=== PATIENT | female | born 1970 | race African-American/Black ===

== ENCOUNTER 2021-01-14 08:08 | Emergency (ER) | payer OTHER, SELFPAY ==
--- NOTE | ~2021-01-14 | XR_ITS ---
EXAMINATION: XR lumbar spine min 4V DATE: 01/14/2021 09:15 INDICATION: Low back pain radiating down the right leg. TECHNIQUE: 5 views of lumbar spine were obtained. COMPARISON: None. FINDINGS: There is 3 degrees dextrocurvature of lumbar spine. Vertebral body heights are normal. Ther e is mildly decreased disc height at L4-L5. There are endplate osteophytes at multiple levels. There is mild facet joint osteoarthritis on the right at L4-L5 and on the left at L5-S1. IMPRESSION: 1. Mild lumbar spondylosis. Reviewed, dictated and finalized at location B. IMPRESSION: 1. Mild lumbar spondylosis.
[2021-01-14 08:20] VITALS: BP 141/98; PULSE 91; RESP 16; TEMP 36.6; O2SAT 100
--- NOTE | 2021-01-14 08:57 | ED.BACK ---
HPI - Back Pain/Injury General Chief Complaint: Urogenital-Female Stated Complaint: lower back pain Time Seen by Provider: 01/14/21 08:10 Source: patient Mode of arrival: ambulatory Limitations: no limitations History of Present Illness HPI Narrative: 50-year-old female presents to [facility] with complaints of low back pain for the past 3 days. Patient reports that the pain does radiate to her right upper leg at times. Patient denies numbness, tingling, bowel or bladder problems. Patient has been taking [id number] Tylenol with minimal relief. Patient reports that she has had similar pain in the past. MD elicited complaint: back pain Pertinent past history: prior back pain Onset (ago): day(s) (3) Location: lumbar spine Radiation: right upper leg Relieving factors: none Associated symptoms: denies other symptoms Related Data Home Medications Medication Instructions Recorded Confirmed amlodipine 10 mg PO DAILY 01/14/21 01/14/21 cyproheptadine 4 mg PO BID 01/14/21 01/14/21 escitalopram oxalate mg 01/14/21 losartan 50 mg PO DAILY 01/14/21 01/14/21 Allergies Allergy/AdvReac Type Severity Reaction Status Date / Time Sulfa (Sulfonamide Allergy Hives Verified 01/14/21 08:46 Antibiotics) Review of Systems Constitutional: Constitutional: Denies chills, Denies fever(s) and Denies weakness Cardiovascular: Cardiovascular: Denies chest pain, Denies rapid heart rate, Denies radiating jaw, neck or arm pain and Denies slow heart rate Respiratory: Respiratory: Denies cough and Denies dyspnea Gastrointestinal: Gastrointestinal: Denies abdominal pain, Denies nausea and Denies vomiting Musculoskeletal: Musculoskeletal: Reports back pain, Denies joint swelling and Denies muscle cramps Integumentary/Breasts: Skin/Breast: Denies rash PMFSH Past Medical History Medical History (Updated 01/14/21 @ 09:26 by Kusum Abebe APRN) Post hysterectomy menopause Social History Social History (Updated 01/14/21 @ 08:59 by Kusum Abebe APRN) Tobacco type: e-cigarettes/vaping Comments At time of signature, I agree with nursing past medical, surgical, social and family history. There is no relevant family history pertinent to the presenting complaint. Exam Const: General: healthy appearing and no acute distress Orientation/consciousness: patient oriented x3 Neck: Neck: normal visual inspection Resp: Effort & Inspection: normal respiratory effort, not labored and not tachypneic Auscultation: clear to auscultation bilaterally Cardio: Rate: regular rate, not bradycardic and not tachycardic Rhythm: regular rhythm Back/Spine/Pelvis: Back: no CVA tenderness Other: Mild pain noted to lower lumbar upon palpation. Full range of motion noted to back. There is no swelling, erythema, bruising or open wounds noted. Gait is steady. Skin: General skin exam: normal color Rashes: no rashes Neuro: General: patient oriented x3, moves all extremities, no meningeal signs and no focal motor deficits Speech: normal speech Extrem: General: normal to inspection Psych: Appearance: grossly normal Mental Status: mental status grossly normal Affect: normal affect Attitude: cooperative Thought content: Yes Normal thought content present Course Course Emergency Course: Patient agrees to follow-up with primary care provider to discuss x-ray results and possibility of additional imaging. Patient agrees to take medications as prescribed. Patient agrees to monitor symptoms closely agrees to proceed to the emergency room if symptoms worsen Vital Signs Vital signs: Vital Signs Temperature 36.6 C 01/14/21 08:20 Pulse Rate 91 01/14/21 08:20 Respiratory Rate 16 01/14/21 08:20 Blood Pressure 141/98 H 01/14/21 08:20 Pulse Oximetry 100 01/14/21 08:20 Temperature 36.6 C 01/14/21 08:20 Pulse Rate 91 01/14/21 08:20 Respiratory Rate 16 01/14/21 08:20 Blood Pressure 141/98 H 01/14/21 08:20 Pulse Oximetry
--- NOTE | 2021-01-14 09:15 | PC.NURSE ---
NO URINE CULTURE PER PRIOVIDER.
[2021-01-14] MEDS: KETOROLAC (*BKC) 60 MG/2 ML VIAL 30 MG IM (09:32)
== END 2021-01-14 10:08 | disposition home or self-care (01) ==
PROVIDERS: Emergency Provider Nurse Practitioner Family; PCP Nurse Practitioner Family
DX: M54.41 Lumbago with sciatica, right side (principal); F17.200 Nicotine dependence, unspecified, uncomplicated; I10 Essential (primary) hypertension
CPT/HCPCS: 72110; 81003; 96372; 99213; G0463; J1885

== ENCOUNTER 2021-05-17 10:53 | Emergency (ER) | payer OTHER, SELFPAY ==
[2021-05-17 11:00] VITALS: BP 114/84; PULSE 86; RESP 16; TEMP 36.1; O2SAT 100
[2021-05-17 11:09] VITALS: BP 114/84; PULSE 86; RESP 16; TEMP 36.1; O2SAT 100
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
== END 2021-05-17 11:37 | disposition home or self-care (01) ==
PROVIDERS: Emergency Provider Nurse Practitioner; PCP Nurse Practitioner Family
DX: T23.132A Burn of first degree of multiple left fingers (nail), not including thumb, initial encounter (principal); X08.8XXA Exposure to other specified smoke, fire and flames, initial encounter; E78.00 Pure hypercholesterolemia, unspecified; I10 Essential (primary) hypertension
CPT/HCPCS: 16000; 99213; A9270; G0463

== ENCOUNTER 2021-05-20 10:49 | Emergency (ER) | payer OTHER, SELFPAY ==
[2021-05-20 10:54] VITALS: BP 119/84; PULSE 102; RESP 20; TEMP 36.9; O2SAT 100
--- NOTE | 2021-05-20 11:50 | ED.GENADULT ---
HPI - General Adult General Chief complaint: Abdominal Pain Stated complaint: Abdominal Cramping/Diarrhea Time Seen by Provider: 05/20/21 11:42 Source: patient and RN notes reviewed Mode of arrival: ambulatory Limitations: no limitations History of Present Illness HPI narrative: Patient presents today complaining of abdominal cramping, 4 episodes of loose stool, nausea, and mild headache. Symptoms began at 430 this morning. Denies vomiting or fever. Reports headache is, not bad enough to take anything for. Denies any recent travel or suspicious food intake. Patient works at a [employer]. States some children have been out recently sick with viruses. . She has taken no [id number] treatment prior to arrival. Denies any blood or mucus in the stool. She has been vaccinated against COVID-19. She has not had a flu shot. MD complaint: Abdominal cramping, loose stool, nausea Related Data Home Medications Medication Instructions Recorded Confirmed amlodipine 10 mg PO DAILY 01/14/21 05/20/21 cyproheptadine 4 mg PO BID 01/14/21 05/20/21 losartan 50 mg PO DAILY 01/14/21 05/20/21 atorvastatin 20 mg PO DAILY 05/17/21 05/20/21 Allergies Allergy/AdvReac Type Severity Reaction Status Date / Time Sulfa (Sulfonamide Allergy Intermediate Hives Verified 05/20/21 10:52 Antibiotics) Review of Systems Review of Systems: CONSTITUTIONAL: Denies body aches, fever, chills, or sweats. EYES: Denies visual changes, redness, or discharge. ENT: Denies rhinorrhea, congestion, sore throat, or otalgia. CARDIOVASCULAR: Denies chest pain, palpitations, or edema. RESPIRATORY: Denies cough or dyspnea. GASTROINTESTINAL: Denies vomiting, or diarrhea.+ Loose stool, nausea, abdominal cramping GENITOURINARY: Denies dysuria or hematuria. SKIN: Denies rash, itching, or wounds. MUSCULOSKELETAL: Denies back pain, joint pain, or myalgia. NEUROLOGIC: Denies numbness, tingling, or weakness.+ Headache PSYCH: Denies depression or anxiety. [facility] Past Medical History Medical History High cholesterol Hypertension Post hysterectomy menopause Family History Family History Other No acute medical problems Social History Social History Tobacco type: e-cigarettes/vaping Comments At time of signature, I have reviewed and agree with nursing past medical, surgical, social and family history unless otherwise noted. Please see nursing chart for further information. There is no relevant family history pertinent to the presenting complaint Exam Narrative: GENERAL: Well-appearing, well-nourished, and in no acute distress. HEAD: Normocephalic, atraumatic. EYES: EOMI. No redness or drainage. Conjunctivae normal. ENT: Mucous membranes pink and moist. NECK: Normal AROM. Supple. No lymphadenopathy. CHEST: No respiratory distress. Clear to auscultation. HEART: Regular rate and rhythm. No murmur appreciated. Normal peripheral pulses. ABDOMEN: Soft, nontender, nondistended, normal active bowel sounds. EXTREMITIES: Normal range of motion. No edema. SKIN: Warm, dry, no rash. Capillary refill normal. Normal skin turgor. NEURO: No focal deficits. Alert and oriented x3. Gait steady. PSYCH: Normal affect. No signs of depression or anxiety. Course Vital Signs Vital signs: Vital Signs Temperature 98.5 F 05/20/21 10:54 Pulse Rate 102 H 05/20/21 10:54 Respiratory Rate 20 05/20/21 10:54 Blood Pressure 119/84 05/20/21 10:54 Pulse Oximetry 100 05/20/21 10:54 Temperature 98.5 F 05/20/21 10:54 Pulse Rate 102 H 05/20/21 10:54 Respiratory Rate 20 05/20/21 10:54 Blood Pressure 119/84 05/20/21 10:54 Pulse Oximetry 100 05/20/21 10:54 Reviewed. Pt has been instructed to follow up with her PCP regarding her elevated blood pressure toda
== END 2021-05-20 12:00 | disposition home or self-care (01) ==
PROVIDERS: Emergency Provider Nurse Practitioner; PCP Nurse Practitioner Family
DX: B34.9 Viral infection, unspecified (principal); I10 Essential (primary) hypertension
CPT/HCPCS: 99213; G0463

== ENCOUNTER 2021-07-20 09:50 | Emergency (ER) | payer OTHER, SELFPAY ==
[2021-07-20 09:54] VITALS: BP 113/79; PULSE 95; RESP 18; TEMP 36.7; O2SAT 100
--- NOTE | 2021-07-20 09:57 | ED.BACK ---
HPI - Back Pain/Injury General Chief Complaint: Back Pain/Injury Stated Complaint: Back pain Time Seen by Provider: 07/20/21 09:54 Source: patient and RN notes reviewed History of Present Illness HPI Narrative: Patient is a 51-year-old female who presents the urgent care with complaints of left-sided back pain. Patient states that it started yesterday after she had been mopping all day at work. Patient states she has a history of sciatica. Denies of any injury or fall. Denies any urinary symptoms. Patient states that she has been using Tylenol for pain. No other acute complaints. No acute distress noted. Patient read the plan of care. Some parts of this dictation were generated by voice recognition software and may contain typographical and/or grammatical inaccuracies. Related Data Home Medications Medication Instructions Recorded Confirmed amlodipine 10 mg PO DAILY 01/14/21 07/20/21 cyproheptadine 4 mg PO BID 01/14/21 07/20/21 losartan 50 mg PO DAILY 01/14/21 07/20/21 atorvastatin 20 mg PO DAILY 05/17/21 07/20/21 Allergies Allergy/AdvReac Type Severity Reaction Status Date / Time Sulfa (Sulfonamide Allergy Intermediate Hives Verified 07/20/21 10:01 Antibiotics) Review of Systems Review of Systems: CONSTITUTIONAL: Denies fever, chills, or sweats. EYES: Denies visual changes, redness, or discharge. ENT: Denies rhinorrhea, congestion, sore throat, or otalgia. CARDIOVASCULAR: Denies chest pain, palpitations, or edema. RESPIRATORY: Denies cough or dyspnea. GASTROINTESTINAL: Denies abdominal pain, nausea, vomiting, or diarrhea. GENITOURINARY: Denies dysuria or hematuria. SKIN: Denies rash or itching. MUSCULOSKELETAL: Reports of left-sided back pain NEUROLOGIC: Denies headache, numbness, or weakness. All other systems reviewed are negative, except as documented in HPI. [facility] Past Medical History Medical History High cholesterol Hypertension Post hysterectomy menopause Family History Family History Other No acute medical problems Social History Social History Tobacco type: e-cigarettes/vaping Comments At the time of my signature, I reviewed and agree with the nursing past medical, surgical, social, and family history. There is no relevant family history pertinent to the patient complaint. Exam Narrative: GENERAL: This is a well-nourished, well-developed patient, in no apparent distress. HEAD: normocephalic, atraumatic. EYES: PERRL. Sclera clear/white. Vision is grossly intact. EARS: External ears normal NOSE: External nose normal with no obvious nasal discharge, nares without redness, no rhinorrhea. THROAT: Mucous membranes moist, posterior pharynx clear. NECK: Neck supple CARDIOVASCULAR: Regular rate and rhythm without murmurs, gallops, or rubs. RESPIRATORY: Clear to auscultation. Breath sounds equal bilaterally. No wheezes, rales, or rhonchi. SKIN: warm, intact with no suspicious lesions or rash, good texture and turgor. NEURO: awake, alert, and oriented to person, place and time. There were no obvious focal neurologic abnormalities. EXTREMITIES: No clubbing, cyanosis, or edema. BACK: Negative bilateral SLE. Moderate left piriformis tenderness with mild left lumbar tenderness Course Course Level of Care: Express Care Visit Vital Signs Vital signs: Vital Signs Temperature 98.1 F 07/20/21 09:54 Pulse Rate 95 07/20/21 09:54 Respiratory Rate 18 07/20/21 09:54 Blood Pressure 113/79 07/20/21 09:54 Pulse Oximetry 100 07/20/21 09:54 Temperature 98.1 F 07/20/21 09:54 Pulse Rate 95 07/20/21 09:54 Respiratory Rate 18 07/20/21 09:54 Blood Pressure 113/79 07/20/21 09:54 Pulse Oximetry 100 07/20/21 09:54 Reviewed MDM - Back Pain/Injury MDM Narrative Medical decision making narrativ
[2021-07-20] MEDS: predniSONE 20 MG TABLET 60 MG PO (10:11)
== END 2021-07-20 10:20 | disposition home or self-care (01) ==
PROVIDERS: Emergency Provider Nurse Practitioner Family; PCP Nurse Practitioner Family
DX: M54.32 Sciatica, left side (principal); E78.00 Pure hypercholesterolemia, unspecified; I10 Essential (primary) hypertension; F17.290 Nicotine dependence, other tobacco product, uncomplicated
CPT/HCPCS: 99213; G0463; J7512

== ENCOUNTER 2021-07-29 11:14 | Emergency (ER) | payer OTHER, SELFPAY ==
[2021-07-29 11:22] VITALS: BP 139/98; PULSE 99; RESP 16; TEMP 36.5; O2SAT 100
[2021-07-29 11:29] VITALS: BP 139/98; PULSE 99; RESP 16; TEMP 36.5; O2SAT 100
--- NOTE | 2021-07-29 11:31 | ED.URI ---
HPI - URI/Sore Throat General Chief Complaint: Upper Respiratory Infection Stated Complaint: Cough/Chest Congestion Time Seen by Provider: 07/29/21 11:20 Source: patient and RN notes reviewed History of Present Illness HPI Narrative: Patient is a 51-year-old female who presents the urgent care with complaints of a cough and chest tightness. Patient states that she missed her appointment with her doctor yesterday but does have a history of bronchitis due to her chronic smoking history. Patient denies any fever, chills, nausea, vomiting. States that her cough has been productive since yesterday. Denies any shortness of breath or wheezing. No other acute complaints. No acute distress noted. Patient aware of the plan of care. Some parts of this dictation were generated by voice recognition software and may contain typographical and/or grammatical inaccuracies. Related Data Home Medications Medication Instructions Recorded Confirmed amlodipine 10 mg PO DAILY 01/14/21 07/29/21 cyproheptadine 4 mg PO BID 01/14/21 07/29/21 losartan 50 mg PO DAILY 01/14/21 07/29/21 atorvastatin 20 mg PO DAILY 05/17/21 07/29/21 Allergies Allergy/AdvReac Type Severity Reaction Status Date / Time Sulfa (Sulfonamide Allergy Intermediate Hives Verified 07/29/21 11:27 Antibiotics) Review of Systems Review of Systems: CONSTITUTIONAL: Denies fever, chills, or sweats. EYES: Denies visual changes, redness, or discharge. ENT: Denies rhinorrhea, reports of nasal congestion and postnasal drainage CARDIOVASCULAR: Denies chest pain, palpitations, or edema. RESPIRATORY: Reports of productive cough without dyspnea GASTROINTESTINAL: Denies abdominal pain, nausea, vomiting, or diarrhea. GENITOURINARY: Denies dysuria or hematuria. SKIN: Denies rash or itching. MUSCULOSKELETAL: Denies back pain, joint pain, or myalgia. NEUROLOGIC: Denies headache, numbness, or weakness. All other systems reviewed are negative, except as documented in HPI. [facility] Past Medical History Medical History High cholesterol Hypertension Post hysterectomy menopause Family History Family History Other No acute medical problems Social History Social History Tobacco type: e-cigarettes/vaping Comments At the time of my signature, I reviewed and agree with the nursing past medical, surgical, social, and family history. There is no relevant family history pertinent to the patient complaint. Exam Narrative: GENERAL: This is a well-nourished, well-developed patient, in no apparent distress. HEAD: normocephalic, atraumatic. EYES: PERRL. Sclera clear/white. Vision is grossly intact. EARS: External ears normal, auditory canals clear and without drainage, TMs normal without perforation. Hearing grossly intact. NOSE: External nose normal with no obvious nasal discharge, nares without redness, no rhinorrhea. THROAT: Mucous membranes moist, posterior pharynx clear. Moderate postnasal drainage NECK: Neck supple CARDIOVASCULAR: Regular rate and rhythm without murmurs, gallops, or rubs. RESPIRATORY: Scant expiratory wheeze to right upper lobe otherwise clear SKIN: warm, intact with no suspicious lesions or rash, good texture and turgor. NEURO: awake, alert, and oriented to person, place and time. There were no obvious focal neurologic abnormalities. EXTREMITIES: No clubbing, cyanosis, or edema. Course Course Level of Care: Express Care Visit Vital Signs Vital signs: Vital Signs Temperature 97.7 F 07/29/21 11:22 Pulse Rate 99 07/29/21 11:22 Respiratory Rate 16 07/29/21 11:22 Blood Pressure 139/98 H 07/29/21 11:22 Pulse Oximetry 100 07/29/21 11:22 Temperature 97.7 F 07/29/21 11:29 Pulse Rate 99 07/29/21 11:29 Respiratory Rate 16 07/29/21 11:29 Blood Pressure 139/98 H 03
== END 2021-07-29 11:51 | disposition home or self-care (01) ==
PROVIDERS: Emergency Provider Nurse Practitioner Family; PCP Nurse Practitioner Family
DX: J40 Bronchitis, not specified as acute or chronic (principal); E78.00 Pure hypercholesterolemia, unspecified; I10 Essential (primary) hypertension
CPT/HCPCS: 99213; G0463

== ENCOUNTER 2022-06-08 16:05 | Emergency (ER) | payer OTHER, SELFPAY ==
--- NOTE | 2022-06-08 16:07 | ED.DIZZY ---
HPI - Dizziness General Chief Complaint: Dizziness Stated Complaint: Dizziness Time Seen by Provider: 06/08/22 16:07 Source: patient Mode of arrival: ambulatory Limitations: no limitations History of Present Illness HPI Narrative: Ms. Cortez is a 52-year-old female patient presenting to the clinic today with complaints of dizziness since this morning. She reports that she woke up this morning and has fell as though the room is spinning. She also reports that her right ear feels clogged. Did have a sharp shooting chest pain that came and went this morning and her blood pressure was elevated stating it was 163/100. She did take her blood pressure medicine and it is now 129/89. States the chest pain has resolved but the dizziness has not. She denies any visual changes or headache Related Data Home Medications Medication Instructions Recorded Confirmed amlodipine 10 mg tablet 10 mg PO DAILY 01/14/21 06/08/22 losartan 50 mg tablet 50 mg PO DAILY 01/14/21 06/08/22 atorvastatin 20 mg tablet 20 mg PO DAILY 05/17/21 06/08/22 Allergies Allergy/AdvReac Type Severity Reaction Status Date / Time Sulfa (Sulfonamide Allergy Intermediate Hives Verified 07/29/21 11:27 Antibiotics) Review of Systems Review of Systems: Pertinent positives per HPI. Patient denies any fever, chills, rash, headache, visual changes, dizziness, cough, shortness of breath, palpitations, nausea, vomiting, diarrhea, constipation, abdominal pain, or any urinary issues. PMFSH Past Medical History Medical History High cholesterol Hypertension Post hysterectomy menopause Family History Family History Other No acute medical problems Social History Social History Tobacco type: e-cigarettes/vaping Comments At the time of my signature, I reviewed and agree with the nursing past medical, surgical, social, and family history. There is no relevant family history pertinent to the patient complaint. Exam Narrative: General: Well-developed, well nourished, in no apparent distress Head: Normocephalic, atraumatic Eyes: Pupils equally round and reactive to light bilaterally, EOM intact, sclera and conjunctive clear, no discharge, lids normal Ears: Left TM intact and clear, right TM intact, congested, opaque, left ear canals clear, right ear canal swollen and tender to palpation, no drainage, hearing diminished in the right ear. Nose: Nares patent, clear nasal discharge, no inflammation, no sinus tenderness. Mouth: Oral pharynx without lesions or masses, good dentition, MMM. Neck: Supple, trachea midline, no enlargement of anterior or posterior cervical nodes, no thyroid masses or goiter palpable. Cardio: Regular rate and rhythm, s1 and s2 normal, no murmur appreciated. Resp: Clear to auscultation bilaterally, no rhonchi, rales, wheezing or rubs Course Course Emergency Course: Portions of this record may have been created with voice recognition software. Level of Care: Express Care Visit Vital Signs Vital signs: Vital Signs Temperature 36.7 C 06/08/22 16:09 Pulse Rate 92 06/08/22 16:09 Respiratory Rate 18 06/08/22 16:09 Blood Pressure 129/89 06/08/22 16:09 Pulse Oximetry 100 06/08/22 16:09 Oxygen Delivery Room Air 06/08/22 16:09 Temperature 36.7 C 06/08/22 16:09 Pulse Rate 92 06/08/22 16:09 Respiratory Rate 18 06/08/22 16:09 Blood Pressure 129/89 06/08/22 16:09 Pulse Oximetry 100 06/08/22 16:09 Oxygen Delivery Room Air 06/08/22 16:09 Vital signs reviewed MDM - Dizziness MDM Narrative Medical decision making narrative: At the time of visit patient is resting comfortably on the exam table. EKG shows sinus rhythm with a heart rate of 63 beats per without ectopy I suspect the patient has serous otitis, otitis
[2022-06-08 16:09] VITALS: BP 129/89; PULSE 92; RESP 18; TEMP 36.7; O2SAT 100
--- NOTE | 2022-06-08 16:37 | ECG_ITS ---
Measurements Intervals [place] Rate: 63 P: 65 ND: 149 QRS: 57 QRSD: 82 T: 64 QT: 395 QTc: 405 Interpretive Statements SINUS RHYTHM BORDERLINE ST ABNORMALITY- ANT/INF LEADS BASELINE ARTIFACT- I, II, AVR BORDERLINE ECG NO PREVIOUS ECG AVAILABLE FOR COMPARISON Electronically Signed On 06-09-2022 8:06:12 [employer] INTERN by José Luis Yun D.O.
== END 2022-06-08 16:51 | disposition home or self-care (01) ==
PROVIDERS: Emergency Provider Nurse Practitioner Family; PCP Nurse Practitioner Family
DX: R07.89 Other chest pain (principal); H65.01 Acute serous otitis media, right ear; H60.311 Diffuse otitis externa, right ear; E78.00 Pure hypercholesterolemia, unspecified; I10 Essential (primary) hypertension; F17.290 Nicotine dependence, other tobacco product, uncomplicated
CPT/HCPCS: 93005; 99213; G0463